=== PATIENT | male | born 1950 | race Caucasian/White ===

== ENCOUNTER 2021-02-17 12:17 | Observation (INO) | payer MEDICARE ==
[2021-02-17] MEDS ORDERED: solu-MEDROL 125 MG, Sterile H2O 10 ml 2 ML IV ONE ×2 (12:31)
[2021-02-17] MEDS ORDERED: DUONEB 0.5-3 MG/3 ml Neb IH ONE ×2 (12:31→12:40)
[2021-02-17] MEDS ORDERED: Zosyn 3.375 GM Vial 3.375 GM in Sodium Chloride 100ML MINI-BAG PLUS 100 ML IV ONE (12:33)
[2021-02-17] MEDS ORDERED: VANCOMYCIN 1 GRAM/200 ML BAG 1 GM/200 ML PIGGYBACK IV ONE ×2 (12:34→12:55)
--- NOTE | 2021-02-17 12:37 | ERPHSYRPT ---
- History of Present Illness Time Seen by Provider: 02/17/21 12:30 Source: patient Exam Limitations: no limitations Physician History: Patient is a 70-year-old male presents to our ED for evaluation of progressive shortness of breath. Patient states he was at his primary care doctor's office 5 days ago. Patient states he was tested for Covid and resulted as negative. Patient states he was diagnosed with pneumonia and started on Levaquin. Patient has been taken his Levaquin antibiotics as prescribed. Despite of his antibiotics patient continues to feel short of breath. Patient states he awoke this morning with short of breath. Patient states he is having a hard time breathing. Patient presented to our ED for evaluation of the shortness of breath and cough. On exam patient was observed to have 4+ pitting edema. Patient denies associated shortness of breath. Patient has history of A. fib. He is currently on Eliquis. No nausea vomiting or diaphoresis. No diarrhea. No rash. Patient voices no other complaints or concerns at this time. Timing/Duration: day(s) (5 days ago) Activities at Onset: none Severity of Dyspnea-Max: moderate Severity of Dyspnea-Current: mild Possible Cause: no prior episodes Modifying Factors: Improves With: activity (Exertion worsens shortness of breath. Patient has not self treated with beta agonist.) Associated Symptoms: constant, cough, edema, wheezing, ankle swelling, productive cough, No chest pain/discomfort, No fever, No loss of appetite, No lightheadedness, No calf pain (Negative Homans' sign bilaterally.), No dizziness, No heart racing, No painful breathing, No tightness, No tingling face Allergies/Adverse Reactions: cephalexin [From Keflex] Allergy (Severe, Verified 02/17/21 12:40) hives breathing insulin glargine [From Lantus U-100 Insulin] Allergy (Severe, Verified 02/17/21 12:40) respiratory Jnladsm-ARY-OnE Reductase Inhibitor Allergy (Verified 02/17/21 13:02) methyltrexate Allergy (Uncoded 02/17/21 13:02) Home Medications: Amiodarone HCl [Pacerone] 200 mg PO DAILY 02/17/21 [History] Apixaban [Eliquis] 5 mg PO DAILY 02/17/21 [History] Carvedilol [Coreg] 25 mg PO DAILY 02/17/21 [History] Dapagliflozin Propanediol [Farxiga] 10 mg PO 02/17/21 [History] Evolocumab [Repatha Syringe] 140 mg SQ DAILY 02/17/21 [History] Furosemide [Lasix] 20 mg PO DAILY 02/17/21 [History] Leflunomide 20 mg PO DAILY 02/17/21 [History] Levofloxacin [Levofloxacin 250MG Tablet] 250 mg PO DAILY 02/17/21 [History] Omeprazole 40 mg PO DAILY 02/17/21 [History] Pentoxifylline 400 mg [Trental 400 MG] 400 mg PO DAILY 02/17/21 [History] Sildenafil Citrate [Viagra] 100 mg PO DAILY 02/17/21 [History] Sitagliptin Phos/Metformin HCl [Janumet 50-1,000 mg Tablet] 1 each PO DAILY 02/17/21 [History] Telmisartan/Hydrochlorothiazid [Micardis Hct 80-25 mg Tablet] 1 each PO DAILY 02/17/21 [History] Tramadol HCl 50 mg [Ultram 50 mg] 50 mg PO DAILY 02/17/21 [History] predniSONE [Prednisone] 20 mg PO DAILY 02/17/21 [History] - Review of Systems Constitutional: No Symptoms, No Fever, No Chills Eyes: No Symptoms Ears, Nose, & Throat: No Symptoms Respiratory: No Symptoms, No Cough, No Dyspnea Cardiac: No Symptoms, No Chest Pain, No Edema, No Syncope Abdominal/Gastrointestinal: No Symptoms, No Abdominal Pain, No Nausea, No Vomiting, No Diarrhea Genitourinary Symptoms: No Symptoms, No Dysuria Musculoskeletal: No Symptoms, No Back Pain, No Neck Pain Skin: No Symptoms, No Rash Neurological: No Symptoms, No Dizziness, No Focal Weakness, No Sensory Changes Psychological: No Symptoms Endocrine: No Symptoms Hematologic/Lymphatic: No Symptoms Immunological/Allergic: No Symptoms All Other Systems: Reviewed and Negative - Nursing Vital Signs Nursing Vital Signs: Initial Vital Signs Temperature 98.3 F 02/17/21 12:26 Pulse Rate 112 H 02/17/21 12:26 Respiratory Rate 24 02/17/21 12:26 Blood Pressure 152/99 02/17/21 12:26 O2 Sat by Pulse Oximetry 92 L 02/17/21 12:26 Pain Scale Pain Intensity 0 - Physical Exam General Appearance: mild distress, alert Eye Exam: PERRL/EOMI Ears, Nose, Throat Exam: hearing grossly normal, normal ENT inspection, normal pharynx Neck Exam: normal inspection, supple, full range of motion, No non-tender Respiratory Exam: respiratory distress, rhonchi, wheezing Cardiovascular/Chest Exam: normal heart sounds, regular rate/rhythm, normal peripheral pulses Abdominal/Gastrointestinal Exam: soft, No tenderness, No distention, No mass Extremity Exam: non-tender, normal range of motion, normal inspection, no calf tenderness, no pedal edema, pedal edema, swelling Peripheral Pulses Exam: dorsalis-pedis (R): 2+, dorsalis-pedis (L): 2+ Neurologic Exam: alert, oriented x 3, cooperative, 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 Heart not enlarged for AP portable technique. 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 STAT Care 02/17/21 12:31 Active EKG-ER Only STAT Care 02/17/21 12:31 Active IV Insertion STAT Care 02/17/21 12:31 Active Pulse Oximetry (ED) STAT Care 02/17/21 12:31 Active CHEST 1 VIEW (PORTABLE) Stat Exams 02/17/21 12:31 Completed BLOOD CULTURE Stat Lab 02/17/21 12:50 Received CBC W DIFF Stat Lab 02/17/21 12:45 Completed CMP Stat Lab 02/17/21 12:45 Completed NT PRO BNP Stat Lab 02/17/21 12:45 Completed TROPONIN Q3H Lab 02/17/21 12:45 Completed TROPONIN Q3H Lab 02/17/21 15:45 Ordered TROPONIN Q3H Lab 02/17/21 18:45 Ordered TROPONIN Q3H Lab 02/17/21 21:45 Ordered TROPONIN Q3H Lab 02/18/21 00:45 Ordered Respiratory Therapy Assessment DAILY RT 02/17/21 13:00 Active Transfer Order Routine Transfer 02/17/21 Ordered Medication Summary Generic Name Dose Route Start Last Admin Trade Name Palomo PRN Reason Stop Dose Admin Doxycycline Hyclate 100 mg/ 100 mls @ 100 mls/hr 02/17/21 22:00 02/17/21 13:12 Dextrose IV 03/19/21 21:59 100 mls/hr Q12HT DAVID Administration Potassium Chloride 20 meq in 100 mls @ 50 mls/hr 02/17/21 14:00 02/17/21 14:28 Potassium Chloride 20 Meq In Water 100ml IV 02/17/21 17:59 50 mls/hr Q2H DAVID Administration Discontinued Medications Generic Name Dose Route Start Last Admin Trade Name Palomo PRN Reason Stop Dose Admin Albuterol/Ipratropium 3 ml 02/17/21 12:31 02/17/21 12:44 Ipratropium/Albuterol Sulfate 3 Ml Ampul.Neb IH 02/17/21 12:32 3 ml STAT ONE Administration Albuterol/Ipratropium Confirm 02/17/21 12:40 Ipratropium/Albuterol Sulfate 3 Ml Ampul.Neb Administered 02/17/21 12:41 Dose 3 ml IH .STK-MED ONE Aspirin 324 mg 02/17/21 13:58 02/17/21 14:27 Aspirin 81 Mg Tab.Chew PO 02/17/21 13:59 324 mg STAT ONE Administration Aspirin Confirm 02/17/21 14:27 Aspirin 81 Mg Tab.Chew Administered 02/17/21 14:28 Dose 324 mg .ROUTE .STK-MED ONE Methylprednisolone Sodium 0 mg 02/17/21 12:31 02/17/21 13:08 Succinate 125 mg/ Sterile IV 02/17/21 12:32 125 mg Water 2 ml STAT ONE Administration Doxycycline Hyclate Confirm 02/17/21 13:12 Doxycycline Hyclate 100 Mg/Vial Injection Administered 02/17/21 13:13 Dose 100 mg IV .STK-MED ONE Furosemide 40 mg 02/17/21 13:58 02/17/21 14:28 Furosemide 40 Mg/4 Ml Vial IV 02/17/21 13:59 40 mg STAT ONE Administration Furosemide Confirm 02/17/21 14:27 Furosemide 40 Mg/4 Ml Vial Administered 02/17/21 14:28 Dose 40 mg .ROUTE .STK-MED ONE Piperacillin Sod/Tazobactam 100 mls @ 200 mls/hr 02/17/21 12:33 02/17/21 13:09 Sod 3.375 gm/ Sodium Chloride IV 02/17/21 13:02 Not Given STAT ONE Vancomycin HCl 1 gm in 200 mls @ 125 mls/hr 02/17/21 12:34 02/17/21 14:50 Vancomycin 1 Gram/200 Ml Bag IV 02/17/21 14:09 Infused STAT ONE Infusion Sodium Chloride Confirm 02/17/21 12:55 Sodium Chloride 100ml Mini-Bag Plus Administered 02/17/21 12:56 Dose 100 mls @ ud IV .STK-MED ONE Vancomycin HCl Confirm 02/17/21 12:55 Vancomycin 1 Gram/200 Ml Bag Administered 02/17/21 12:56 Dose 1 gm in 200 mls @ ud IV .STK-MED ONE Dextrose Confirm 02/17/21 13:12 D5w 100ml Mini Bag 100 Ml Administered 02/17/21 13:13 Dose 100 mls @ ud IV .STK-MED ONE Methylprednisolone Sodium Succinate Confirm 02/17/21 12:55 Methylprednis Sod Succ 125 Mg/2 Ml Vial Administered 02/17/21 12:56 Dose 125 mg .ROUTE .STK-MED ONE Nitroglycerin 1 gm 02/17/21 14:03 02/17/21 14:28 Nitroglycerin 1 Gm Packet TOP 02/17/21 14:04 1 gm STAT ONE Administration Nitroglycerin Confirm 02/17/21 14:27 Nitroglycerin 1 Gm Packet Administered 02/17/21 14:28 Dose 1 gm .ROUTE .STK-MED ONE Piperacillin Sod/Tazobactam Sod Confirm 02/17/21 12:55 Piperacillin/Tazobactam Sodium 3.375 Gm Vial Administered 02/17/21 12:56 Dose 3.375 gm IV .STK-MED ONE Sterile Water Confirm 02/17/21 12:55 Water For Injection,Sterile 10 Ml Vial Administered 02/17/21 12:56 Dose 10 ml IJ .STK-MED ONE Lab/Rad Data: Laboratory Result Diagrams 02/17/21 12:45 02/17/21 12:45 Laboratory Results 02/17/21 02/17/21 02/17/21 Range/Units 12:56 12:45 12:45 WBC (4.0-10.5) K/mm3 RBC (4.1-5.6) M/mm3 Hgb (12.5-18.0) gm/dl Hct (42-50) % MCV (78-100) fl MCH (26-32) pg MCHC (32-36) g/dl RDW (11.5-14.0) % Plt Count (150-450) K/mm3 MPV (7.5-11.0) fl Gran % (36.0-66.0) % Eos # (Auto) (0-0.5) Absolute Lymphs (auto) (1.0-4.6) Absolute Monos (auto) (0.0-1.3) Lymphocytes % (24.0-44.0) % Monocytes % (0.0-12.0) % Eosinophils % (0.00-5.0) % Basophils % (0.0-0.4) % Absolute Granulocytes (1.4-6.9) Basophils # (0-0.4) Sodium 130 L (137-145) mmol/L Potassium 3.2 L (3.5-5.1) mmol/L Chloride 92 L (98-107) mmol/L Carbon Dioxide 26 (22-30) mmol/L Anion Gap 15.4 H (5-15) MEQ/L BUN 19 (9-20) mg/dL Creatinine 1.23 (0.66-1.25) mg/dL Estimated GFR > 60.0 ML/MIN Glucose 170 H (74-106) mg/dL Calcium 8.9 (8.4-10.2) mg/dL Total Bilirubin 1.00 (0.2-1.3) mg/dL AST 30 (17-59) U/L ALT 35 (0-50) U/L Alkaline Phosphatase 150 H (38-126) U/L Troponin I 0.068 H* (0.000-0.034) ng/mL NT-Pro-B Natriuret Pep 79589 H (0-900) pg/mL Serum Total Protein 7.3 (6.3-8.2) g/dL Albumin 4.0 (3.5-5.0) g/dL Influenza Type A Ag NEGATIVE (NEGATIVE) Influenza Type B Ag NEGATIVE (NEGATIVE) RSV (PCR) NEGATIVE (Negative) SARS-CoV-2 (PCR) NEGATIVE (NEGATIVE) Slides for Path Review 02/17/21 Range/Units 12:45 WBC 6.3 (4.0-10.5) K/mm3 RBC 4.27 (4.1-5.6) M/mm3 Hgb 9.6 L (12.5-18.0) gm/dl Hct 33.3 L (42-50) % MCV 78.0 (78-100) fl MCH 22.5 L (26-32) pg MCHC 28.8 L (32-36) g/dl RDW 21.8 H (11.5-14.0) % Plt Count 254 (150-450) K/mm3 MPV 9.7 (7.5-11.0) fl Gran % 76.3 H (36.0-66.0) % Eos # (Auto) 0.16 (0-0.5) Absolute Lymphs (auto) 0.60 L (1.0-4.6) Absolute Monos (auto) 0.70 (0.0-1.3) Lymphocytes % 9.6 L (24.0-44.0) % Monocytes % 11.2 (0.0-12.0) % Eosinophils % 2.6 (0.00-5.0) % Basophils % 0.3 (0.0-0.4) % Absolute Granulocytes 4.78 (1.4-6.9) Basophils # 0.02 (0-0.4) Sodium (137-145) mmol/L Potassium (3.5-5.1) mmol/L Chloride (98-107) mmol/L Carbon Dioxide (22-30) mmol/L Anion Gap (5-15) MEQ/L BUN (9-20) mg/dL Creatinine (0.66-1.25) mg/dL Estimated GFR ML/MIN Glucose (74-106) mg/dL Calcium (8.4-10.2) mg/dL Total Bilirubin (0.2-1.3) mg/dL AST (17-59) U/L ALT (0-50) U/L Alkaline Phosphatase (38-126) U/L Troponin I (0.000-0.034) ng/mL NT-Pro-B Natriuret Pep (0-900) pg/mL Serum Total Protein (6.3-8.2) g/dL Albumin (3.5-5.0) g/dL Influenza Type A Ag (NEGATIVE) Influenza Type B Ag (NEGATIVE) RSV (PCR) (Negative) SARS-CoV-2 (PCR) (NEGATIVE) Slides for Path Review YES - Progress Progress: improved Air Movement: good Progress Note: Patient reassessed. He is breathing much easier at this point. Patient states he feels better. Work-up reveals hyponatremia. Hypokalemia observed. Patient received potassium replacement. BNP is 10,800. Given the physical exam it is likely patient is experiencing congestive heart failure. Troponin elevated at 0.068. Patient received 40 mg of Lasix and Nitropaste and aspirin. Patient was also mildly anemic. Chest x-ray reveals bilateral pneumonia which appears similar to Covid pneumonia. Patient states he recently tested negative for Co vid. We are awaiting a repeat Covid exam at this time. 02/17/21 14:06 Patient is Covid RSV and influenza negative. 02/17/21 14:08 Patient is in A. fib. He has A. fib chronically. Patient on Eliquis. Case discussed with who advised transfer to [facility]. 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 Plan of care discussed with patient. He agrees to transfer to [facility] for further evaluation and treatment. 02/17/21 14:[address] Zapien hospitalist at [facility] who accepts transfer. Patient is currently on the wait list. 02/17/21 14:33 Blood Culture(s) Obtained: Yes Antibiotics given: Yes Discussed with : Jordy Counseled pt/family regarding: lab results, diagnosis, need for follow-up, rad results - Departure Departure Disposition: Transfer Clinical Impression: Hyponatremia, Hypokalemia, Elevated troponin, Elevated brain natriuretic peptide (BNP) level, Congestive heart failure, Anemia, Pneumonia, Atrial fibrillation, Hypoxia Condition: Stable Critical Care Time: No Referrals: GEETA MENEZES MD [Primary Care Provider] - Follow up/PCP as directed Instructions: Heart Failure
--- NOTE | 2021-02-17 12:54 | XRAY ---
Indication: Short of breath. Comparison: None Portable chest demonstrate mild bibasilar interstitial alveolar opacities without consolidation/large effusion. Heart not enlarged for AP portable technique. Bony thorax intact.
[2021-02-17] MEDS ORDERED: Sodium Chloride 100ML MINI-BAG PLUS 0 ML IV ONE (12:55)
[2021-02-17] MEDS ORDERED: Sterile H2O 10 ml IJ ONE (12:55)
[2021-02-17] MEDS ORDERED: solu-MEDROL ONE (12:55)
[2021-02-17] MEDS ORDERED: Zosyn 3.375 GM Vial IV ONE (12:55)
[2021-02-17 12:56] LABS: Absolute Neutrophil Ct (ANC) 4.78 (1.4-6.9); BASOPHIL % 0.3 % (0.0-0.4); Basophil (Absolute #) 0.02 (0-0.4); Eosinophil % 2.6 % (0.00-5.0); Eosinophil (Absolute #) 0.16 (0-0.5); Hematocrit 33.3 % (42-50); Hemoglobin 9.6 gm/dl (12.5-18.0); Lymphocytes % 9.6 % (24.0-44.0); Mean Corpuscular Hemoglobin 22.5 pg (26-32); Mean Corpuscular Hgb Concent. 28.8 g/dl (32-36); Mean Platelet Volume 9.7 fl (7.5-11.0); Monocytes % 11.2 % (0.0-12.0); Neutrophil % 76.3 % (36.0-66.0); Platelet Count 254 K/mm3 (150-450); Red Blood Count 4.27 M/mm3 (4.1-5.6); Red Cell Distribution Width 21.8 % (11.5-14.0); White Blood Count 6.3 K/mm3 (4.0-10.5)
[2021-02-17] MEDS ORDERED: VIBRAMYCIN 100 MG IV ONE ×2 (13:12→22:12)
[2021-02-17] MEDS ORDERED: D5w 100ML Mini Bag 100 ML 100 ML IV ONE ×2 (13:12→22:12)
[2021-02-17 13:19] LABS: ALKALINE PHOSPHATASE 150 U/L (38-126); ANION GAP 15.4 MEQ/L (5-15); BLOOD UREA NITROGEN 19 mg/dL (9-20); CHLORIDE 92 mmol/L (98-107); Calcium 8.9 mg/dL (8.4-10.2); Carbon Dioxide 26 mmol/L (22-30); Creatinine 1 1.23 mg/dL (0.66-1.25); EST GLOMERULAR FILTRATION RATE > 60.0 ML/MIN; Glucose 170 mg/dL (74-106); NT PRO BNP 10800 pg/mL (0-900); Potassium 3.2 mmol/L (3.5-5.1); SGOT/AST 30 U/L (17-59); SGPT/ALT 35 U/L (0-50); SODIUM 130 mmol/L (137-145); Total Protein 7.3 g/dL (6.3-8.2)
[2021-02-17 13:36] LABS: INFLUENZA A NEGATIVE (NEGATIVE); INFLUENZA B NEGATIVE (NEGATIVE); RESPIRATORY SYNCTIAL VIRUS NEGATIVE (Negative); SARS-CoV-2 Xpert Express NEGATIVE (NEGATIVE)
[2021-02-17] MEDS ORDERED: Lasix 40 MG/4 ML IV ONE (13:58)
[2021-02-17] MEDS ORDERED: BABY ASPIRIN 81 MG CHEW PO ONE (13:58)
[2021-02-17] MEDS ORDERED: NITRO-BID 2% UD PACKETS TOP ONE (14:03)
[2021-02-17] MEDS ORDERED: POTASSIUM CHLORIDE 20 mEq IN WATER 100ML 100 ML IV ONE ×2 (14:27→17:57)
[2021-02-17] MEDS ORDERED: NITRO-BID 2% UD PACKETS ONE (14:27)
[2021-02-17] MEDS ORDERED: BABY ASPIRIN 81 MG CHEW ONE (14:27)
[2021-02-17] MEDS ORDERED: Lasix 40 MG/4 ML ONE (14:27)
[2021-02-17] MEDS: POTASSIUM CHLORIDE 20 mEq IN WATER 100ML 20 MEQ/100 ML BAG IV SCH ×2 (14:28→17:59)
[2021-02-17 15:12] LABS: Slide Review 1 YES
[2021-02-17] MEDS: solu-MEDROL 60 MG, Sterile H2O 10 ml 2 ML IV SCH ×4 (17:59→23:00)
[2021-02-17] MEDS ORDERED: ULTRAM 50 MG PO PRN (18:30)
[2021-02-17] MEDS: DUONEB 0.5-3 MG/3 ml Neb IH SCH ×2 (19:05→22:41)
[2021-02-17] MEDS: ELIQUIS 2.5 MG TABLET PO SCH (21:20)
[2021-02-17] MEDS: COREG 12.5 MG PO SCH (21:20)
[2021-02-17] MEDS: Protonix 40MG Tablet PO SCH (21:21)
[2021-02-17] MEDS: ECOTRIN 81 MG PO SCH (21:23)
[2021-02-17] MEDS ORDERED: Januvia 50 MG PO SCH (22:00)
[2021-02-17] MEDS ORDERED: Pepcid 20 MG PO SCH (22:00)
[2021-02-17] MEDS ORDERED: VIBRAMYCIN 100 MG*** 100 MG in Dextrose 5%/Water IV Soln. 100ML PLUS BAG 100 ML IV SCH (22:00)
[2021-02-17] MEDS: VIBRAMYCIN 100 MG*** 100 MG in Dextrose 5%/Water IV Soln. 100ML PLUS BAG 100 ML IV SCH (23:00)
[2021-02-18 02:45] LABS: ANION GAP 13.8 MEQ/L (5-15); Calcium 8.4 mg/dL (8.4-10.2); Creatinine 1 1.37 mg/dL (0.66-1.25); EST GLOMERULAR FILTRATION RATE 54.6 ML/MIN; Potassium 3.6 mmol/L (3.5-5.1)
[2021-02-18 02:46] LABS: Hemoglobin 8.3 gm/dl (12.5-18.0); Mean Cell Volume 77.7 fl (78-100); Mean Corpuscular Hemoglobin 22.3 pg (26-32); Mean Corpuscular Hgb Concent. 28.6 g/dl (32-36); Mean Platelet Volume 8.9 fl (7.5-11.0); Platelet Count 196 K/mm3 (150-450); Red Blood Count 3.73 M/mm3 (4.1-5.6); Red Cell Distribution Width 21.7 % (11.5-14.0); White Blood Count 2.6 K/mm3 (4.0-10.5)
[2021-02-18] MEDS: DUONEB 0.5-3 MG/3 ml Neb IH SCH ×5 (02:57→18:09)
[2021-02-18 03:52] LABS: Slide Review YES
[2021-02-18] MEDS ORDERED: D50W 50 ml Abboject IV ONE (04:15)
[2021-02-18] MEDS: solu-MEDROL 60 MG, Sterile H2O 10 ml 2 ML IV SCH ×6 (06:16→17:24)
[2021-02-18] MEDS: Glucophage 500 MG PO SCH ×2 (07:55→17:24)
--- NOTE | 2021-02-18 08:25 | PCM.HP ---
History of Present Illness - Chief Complaint Chief Complaint: chf, pneumonia History of Present Illness: is a 70 year old malecame to ER with 1 week Hx of fever, cough, chills, shortness of breath - Review of Systems Constitutional: Fever, Chills Eyes: No Symptoms Ears, Nose, & Throat: No Symptoms Respiratory: Cough, Orthopnea, Short Of Breath, Wheezing Cardiac: No Chest Pain, No Edema, No Syncope Abdominal/Gastrointestinal: No Abdominal Pain, No Nausea, No Vomiting, No Diarrhea Genitourinary Symptoms: No Dysuria Musculoskeletal: No Back Pain, No Neck Pain Skin: No Rash Neurological: No Dizziness, No Focal Weakness, No Sensory Changes Psychological: No Symptoms Endocrine: No Symptoms Hematologic/Lymphatic: No Symptoms Immunological/Allergic: No Symptoms Medications & Allergies Home Medications: Home Medication List Apixaban [Eliquis] 5 mg PO DAILY 02/17/21 [History Confirmed 02/17/21] Aspirin EC 81 mg [Ecotrin 81 mg] 81 mg PO DAILY 02/17/21 [History Confirmed 02/17/21] Carvedilol [Coreg] 25 mg PO BID 02/17/21 [History Confirmed 02/17/21] Dapagliflozin Propanediol [Farxiga] 10 mg PO DAILY 02/17/21 [History Confirmed 02/17/21] Evolocumab [Repatha Syringe] 140 mg SQ UD 02/17/21 [History Confirmed 02/17/21] Famotidine [Pepcid] 40 mg PO HS 02/17/21 [History Confirmed 02/17/21] Famotidine [Pepcid] 40 mg PO HS 02/17/21 [History Confirmed 02/17/21] Fiber [Fiber Diet] 6 each PO HS 02/17/21 [History Confirmed 02/17/21] Furosemide [Lasix] 20 mg PO DAILY 02/17/21 [History Confirmed 02/17/21] Leflunomide 20 mg PO DAILY 02/17/21 [History Confirmed 02/17/21] Linaclotide [Linzess] 290 mcg PO DAILY PRN PRN 02/17/21 [History Confirmed 02/17/21] Omeprazole 40 mg PO BID 02/17/21 [History Confirmed 02/17/21] Potassium Chloride 8 meq PO DAILY 02/17/21 [History Confirmed 02/17/21] Sildenafil Citrate [Viagra] 100 mg PO DAILY PRN 02/17/21 [History Confirmed 02/01 10/21] Sitagliptin Phos/Metformin HCl [Janumet 50-1,000 mg Tablet] 1 each PO BID 02/17/21 [History Confirmed 02/17/21] Telmisartan/Hydrochlorothiazid [Micardis Hct 80-25 mg Tablet] 1 each PO DAILY 02/17/21 [History Confirmed 02/17/21] Tramadol HCl 50 mg [Ultram 50 mg] 50 mg PO Q4H PRN PRN 02/17/21 [History Confirmed 02/17/21] predniSONE [Prednisone] 20 mg PO DAILY 02/17/21 [History Confirmed 02/17/21] Allergies/Adverse Reactions: Allergies Allergy/AdvReac Type Severity Reaction Status Date / Time cephalexin [From Keflex] Allergy Severe hives Verified 02/17/21 18:15 breathing insulin glargine Allergy Severe respiratory Verified 02/17/21 18:15 [From Lantus U-100 Insulin] [id number] Reductase Allergy Verified 02/17/21 18:15 Inhibitor methyltrexate Allergy Uncoded 02/17/21 13:02 - Past Medical History Past Medical History: Yes Neurological History: No Pertinent History ENT History: Cataracts Cardiac History: Arrhythmia, High Cholesterol, Hypertension Respiratory History: No Pertinent History Endocrine Medical History: Diabetes Type II Musculoskelatal History: Arthritis, Rheumatoid Arthritis GI Medical History: Diverticulitis, Diverticulosis, GERD, Gallbladder Disease History: No Pertinent History Pyscho-Social History: No Pertinent History Male Reproductive Disorders: Other Comment: erectile dysfunction - Past Surgical History Past Surgical History: Yes Neuro Surgical History: No Pertinent History Cardiac History: Cardiac Catheterization, Cardiac Stent Respiratory Surgery: No Pertinent History GI Surgical History: Cholecystectomy Genitourinary Surgical Hx: No Pertinent History Musculskeletal Surgical Hx: Joint Replacement, Orthopedic Surgery Male Surgical History: Vasectomy Other Surgical History: chidi. vasectomy. heart cath 6 stents. left hand joint replacement - Social History Smoking Status: Former smoker Exposure to second hand smoke: No Alcohol: None Drug Use: none - Physical Exam Vital Signs: Vital Signs - 24 hr Temp Pulse Resp BP Pulse Ox 02/18/21 07:31 84 18 95 02/18/21 04:00 97.7 F 88 18 166/91 98 02/18/21 03:00 87 22 94 L 02/18/21 00:00 97.1 F 97 H 20 153/92 97 02/17/21 22:42 89 19 93 L 02/17/21 20:00 97.1 F 109 H 20 142/83 96 02/17/21 19:05 96 H 20 94 L 02/17/21 16:07 97.1 F 105 H 20 143/92 95 02/17/21 15:41 92 L 02/17/21 15:02 98.3 F 103 H 22 157/97 98 02/17/21 14:05 98.3 F 94 H 22 151/106 96 02/17/21 13:23 103 H 21 143/108 97 02/17/21 12:50 91 L 02/17/21 12:44 106 H 20 99 02/17/21 12:26 98.3 F 112 H 22 152/99 92 L General Appearance: no apparent distress, alert Neurologic Exam: alert, oriented x 3, cooperative, normal mood/affect, nml cerebellar function, nml station & gait, sensation nml, No motor deficits Eye Exam: PERRL/EOMI, eyes nml inspection Ears, Nose, Throat Exam: normal ENT inspection, TMs normal, pharynx normal, moist mucous membranes Neck Exam: normal inspection, non-tender, supple, full range of motion Respiratory Exam: diminished breath sounds, crackles/rales, rhonchi, wheezing, No respiratory distress Cardiovascular Exam: regular rate/rhythm, normal heart sounds, normal peripheral pulses Gastrointestinal/Abdomen Exam: soft, normal bowel sounds, No tenderness, No mass Back Exam: normal inspection, normal range of motion, No CVA tenderness, No vertebral tenderness Extremity Exam: normal inspection, normal range of motion, pelvis stable Skin Exam: normal color, warm, dry, No rash Lymphatic Exam: No adenopathy Results - Labs Lab/Micro Results: Lab Results-Last 24 Hours 02/17/21 02/17/21 02/17/21 Range/Units 12:45 12:45 12:45 WBC 6.3 (4.0-10.5) K/mm3 RBC 4.27 (4.1-5.6) M/mm3 Hgb 9.6 L (12.5-18.0) gm/dl Hct 33.3 L (42-50) % MCV 78.0 (78-100) fl MCH 22.5 L (26-32) pg MCHC 28.8 L (32-36) g/dl RDW 21.8 H (11.5-14.0) % Plt Count 254 (150-450) K/mm3 MPV 9.7 (7.5-11.0) fl Gran % 76.3 H (36.0-66.0) % Eos # (Auto) 0.16 (0-0.5) Absolute Lymphs (auto) 0.60 L (1.0-4.6) Absolute Monos (auto) 0.70 (0.0-1.3) Lymphocytes % 9.6 L (24.0-44.0) % Monocytes % 11.2 (0.0-12.0) % Eosinophils % 2.6 (0.00-5.0) % Basophils % 0.3 (0.0-0.4) % Absolute Granulocytes 4.78 (1.4-6.9) Basophils # 0.02 (0-0.4) Sodium 130 L (137-145) mmol/L Potassium 3.2 L (3.5-5.1) mmol/L Chloride 92 L (98-107) mmol/L Carbon Dioxide 26 (22-30) mmol/L Anion Gap 15.4 H (5-15) MEQ/L BUN 19 (9-20) mg/dL Creatinine 1.23 (0.66-1.25) mg/dL Estimated GFR > 60.0 ML/MIN Glucose 170 H (74-106) mg/dL POC Glucometer (74 to 106) mg/dL Hemoglobin A1c (4.5-6.0) % Calcium 8.9 (8.4-10.2) mg/dL Total Bilirubin 1.00 (0.2-1.3) mg/dL AST 30 (17-59) U/L ALT 35 (0-50) U/L Alkaline Phosphatase 150 H (38-126) U/L Troponin I 0.068 H* (0.000-0.034) ng/mL NT-Pro-B Natriuret Pep 52524 H (0-900) pg/mL Serum Total Protein 7.3 (6.3-8.2) g/dL Albumin 4.0 (3.5-5.0) g/dL Influenza Type A Ag (NEGATIVE) Influenza Type B Ag (NEGATIVE) RSV (PCR) (Negative) SARS-CoV-2 (PCR) (NEGATIVE) Slides for Path Review YES 02/17/21 02/17/21 02/17/21 Range/Units 12:56 15:44 17:05 WBC (4.0-10.5) K/mm3 RBC (4.1-5.6) M/mm3 Hgb (12.5-18.0) gm/dl Hct (42-50) % MCV (78-100) fl MCH (26-32) pg MCHC (32-36) g/dl RDW (11.5-14.0) % Plt Count (150-450) K/mm3 MPV (7.5-11.0) fl Gran % (36.0-66.0) % Eos # (Auto) (0-0.5) Absolute Lymphs (auto) (1.0-4.6) Absolute Monos (auto) (0.0-1.3) Lymphocytes % (24.0-44.0) % Monocytes % (0.0-12.0) % Eosinophils % (0.00-5.0) % Basophils % (0.0-0.4) % Absolute Granulocytes (1.4-6.9) Basophils # (0-0.4) Sodium (137-145) mmol/L Potassium (3.5-5.1) mmol/L Chloride (98-107) mmol/L Carbon Dioxide (22-30) mmol/L Anion Gap (5-15) MEQ/L BUN (9-20) mg/dL Creatinine (0.66-1.25) mg/dL Estimated GFR ML/MIN Glucose (74-106) mg/dL POC Glucometer (74 to 106) mg/dL Hemoglobin A1c 7.70 H (4.5-6.0) % Calcium (8.4-10.2) mg/dL Total Bilirubin (0.2-1.3) mg/dL AST (17-59) U/L ALT (0-50) U/L Alkaline Phosphatase (38-126) U/L Troponin I 0.055 H* (0.000-0.034) ng/mL NT-Pro-B Natriuret Pep (0-900) pg/mL Serum Total Protein (6.3-8.2) g/dL Albumin (3.5-5.0) g/dL Influenza Type A Ag NEGATIVE (NEGATIVE) Influenza Type B Ag NEGATIVE (NEGATIVE) RSV (PCR) NEGATIVE (Negative) SARS-CoV-2 (PCR) NEGATIVE (NEGATIVE) Slides for Path Review 02/17/21 02/17/21 02/17/21 Range/Units 19:03 21:03 22:26 WBC (4.0-10.5) K/mm3 RBC (4.1-5.6) M/mm3 Hgb (12.5-18.0) gm/dl Hct (42-50) % MCV (78-100) fl MCH (26-32) pg MCHC (32-36) g/dl RDW (11.5-14.0) % Plt Count (150-450) K/mm3 MPV (7.5-11.0) fl Gran % (36.0-66.0) % Eos # (Auto) (0-0.5) Absolute Lymphs (auto) (1.0-4.6) Absolute Monos (auto) (0.0-1.3) Lymphocytes % (24.0-44.0) % Monocytes % (0.0-12.0) % Eosinophils % (0.00-5.0) % Basophils % (0.0-0.4) % Absolute Granulocytes (1.4-6.9) Basophils # (0-0.4) Sodium (137-145) mmol/L Potassium (3.5-5.1) mmol/L Chloride (98-107) mmol/L Carbon Dioxide (22-30) mmol/L Anion Gap (5-15) MEQ/L BUN (9-20) mg/dL Creatinine (0.66-1.25) mg/dL Estimated GFR ML/MIN Glucose (74-106) mg/dL POC Glucometer 278 H (74 to 106) mg/dL Hemoglobin A1c (4.5-6.0) % Calcium (8.4-10.2) mg/dL Total Bilirubin (0.2-1.3) mg/dL AST (17-59) U/L ALT (0-50) U/L Alkaline Phosphatase (38-126) U/L Troponin I 0.052 H* 0.045 H* (0.000-0.034) ng/mL NT-Pro-B Natriuret Pep (0-900) pg/mL Serum Total Protein (6.3-8.2) g/dL Albumin (3.5-5.0) g/dL Influenza Type A Ag (NEGATIVE) Influenza Type B Ag (NEGATIVE) RSV (PCR) (Negative) SARS-CoV-2 (PCR) (NEGATIVE) Slides for Path Review 02/18/21 02/18/21 02/18/21 Range/Units 01:53 01:53 01:53 WBC 2.6 L (4.0-10.5) K/mm3 RBC 3.73 L (4.1-5.6) M/mm3 Hgb 8.3 L (12.5-18.0) gm/dl Hct 29.0 L (42-50) % MCV 77.7 L (78-100) fl MCH 22.3 L (26-32) pg MCHC 28.6 L (32-36) g/dl RDW 21.7 H (11.5-14.0) % Plt Count 196 (150-450) K/mm3 MPV 8.9 (7.5-11.0) fl Gran % (36.0-66.0) % Eos # (Auto) (0-0.5) Absolute Lymphs (auto) (1.0-4.6) Absolute Monos (auto) (0.0-1.3) Lymphocytes % (24.0-44.0) % Monocytes % (0.0-12.0) % Eosinophils % (0.00-5.0) % Basophils % (0.0-0.4) % Absolute Granulocytes (1.4-6.9) Basophils # (0-0.4) Sodium 132 L (137-145) mmol/L Potassium 3.6 (3.5-5.1) mmol/L Chloride 95 L (98-107) mmol/L Carbon Dioxide 26 (22-30) mmol/L Anion Gap 13.8 (5-15) MEQ/L BUN 22 H (9-20) mg/dL Creatinine 1.37 H (0.66-1.25) mg/dL Estimated GFR 54.6 ML/MIN Glucose 199 H (74-106) mg/dL POC Glucometer (74 to 106) mg/dL Hemoglobin A1c (4.5-6.0) % Calcium 8.4 (8.4-10.2) mg/dL Total Bilirubin (0.2-1.3) mg/dL AST (17-59) U/L ALT (0-50) U/L Alkaline Phosphatase (38-126) U/L Troponin I 0.047 H* (0.000-0.034) ng/mL NT-Pro-B Natriuret Pep 52710 H (0-900) pg/mL Serum Total Protein (6.3-8.2) g/dL Albumin (3.5-5.0) g/dL Influenza Type A Ag (NEGATIVE) Influenza Type B Ag (NEGATIVE) RSV (PCR) (Negative) SARS-CoV-2 (PCR) (NEGATIVE) Slides for Path Review YES 02/18/21 Range/Units 07:05 WBC (4.0-10.5) K/mm3 RBC (4.1-5.6) M/mm3 Hgb (12.5-18.0) gm/dl Hct (42-50) % MCV (78-100) fl MCH (26-32) pg MCHC (32-36) g/dl RDW (11.5-14.0) % Plt Count (150-450) K/mm3 MPV (7.5-11.0) fl Gran % (36.0-66.0) % Eos # (Auto) (0-0.5) Absolute Lymphs (auto) (1.0-4.6) Absolute Monos (auto) (0.0-1.3) Lymphocytes % (24.0-44.0) % Monocytes % (0.0-12.0) % Eosinophils % (0.00-5.0) % Basophils % (0.0-0.4) % Absolute Granulocytes (1.4-6.9) Basophils # (0-0.4) Sodium (137-145) mmol/L Potassium (3.5-5.1) mmol/L Chloride (98-107) mmol/L Carbon Dioxide (22-30) mmol/L Anion Gap (5-15) MEQ/L BUN (9-20) mg/dL Creatinine (0.66-1.25) mg/dL Estimated GFR ML/MIN Glucose (74-106) mg/dL POC Glucometer 121 H (74 to 106) mg/dL Hemoglobin A1c (4.5-6.0) % Calcium (8.4-10.2) mg/dL Total Bilirubin (0.2-1.3) mg/dL AST (17-59) U/L ALT (0-50) U/L Alkaline Phosphatase (38-126) U/L Troponin I (0.000-0.034) ng/mL NT-Pro-B Natriuret Pep (0-900) pg/mL Serum Total Protein (6.3-8.2) g/dL Albumin (3.5-5.0) g/dL Influenza Type A Ag (NEGATIVE) Influenza Type B Ag (NEGATIVE) RSV (PCR) (Negative) SARS-CoV-2 (PCR) (NEGATIVE) Slides for Path Review - Radiology Impressions Radiology Exams & Impressions: Radiology Procedures Category Date Time Status CHEST 1 VIEW (PORTABLE) Stat Exams 02/17/21 12:31 Completed - Other Procedures and Tests Respiratory Therapy 02/17/21 13:00 Respiratory Therapy Assessment DAILY 02/17/21 16:02 Oxygen NASAL CANNULA 2 lpm 02/17/21 21:42 BiPap/CPAP ROUTINE Assessment/Plan (1) Atrial fibrillation Current Visit: Yes Status: Acute Code(s): I48.91 - UNSPECIFIED ATRIAL FIBRILLATION (2) Congestive heart failure Current Visit: Yes Status: Acute Code(s): I50.9 - HEART FAILURE, UNSPECIFIED (3) Elevated brain natriuretic peptide (BNP) level Current Visit: Yes Status: Acute Code(s): R79.89 - OTHER SPECIFIED ABNORMAL FINDINGS OF BLOOD CHEMISTRY (4) Pneumonia Current Visit: Yes Status: Acute Code(s): J18.9 - PNEUMONIA, UNSPECIFIED ORGANISM
[2021-02-18] MEDS ORDERED: NON-FORMULARY ITEM (Linaclotide [Linzess] 290 MCG Capsule) PO PRN (08:49)
[2021-02-18] MEDS ORDERED: SILDENAFIL CITRATE 100 MG PO PRN (08:49)
[2021-02-18] MEDS ORDERED: NON-FORMULARY ITEM (Evolocumab [Repatha Syringe] 140 MG/ML Syringe) SQ SCH (09:00)
[2021-02-18] MEDS ORDERED: MEDICATION INTERVENTION PO SCH ×5 (09:15→09:30)
[2021-02-18] MEDS ORDERED: MEDICATION INTERVENTION MC SCH (09:30)
[2021-02-18] MEDS: Protonix 40MG Tablet PO SCH (09:56)
[2021-02-18] MEDS: ELIQUIS 2.5 MG TABLET PO SCH (09:56)
[2021-02-18] MEDS: COREG 12.5 MG PO SCH (09:56)
[2021-02-18] MEDS: ECOTRIN 81 MG PO SCH (09:56)
[2021-02-18] MEDS: Januvia 50 MG PO SCH ×2 (09:57→17:24)
[2021-02-18] MEDS: VIBRAMYCIN 100 MG*** 100 MG in Dextrose 5%/Water IV Soln. 100ML PLUS BAG 100 ML IV SCH (09:57)
[2021-02-18] MEDS ORDERED: hydroDIURIL 25 MG PO SCH (10:00)
[2021-02-18] MEDS ORDERED: NON-FORMULARY ITEM (Potassium Chloride [Potassium Chloride] 8 MEQ Tablet.Er) PO SCH (10:00)
[2021-02-18] MEDS ORDERED: HYDROCHLOROTHIAZIDE PO SCH (10:00)
[2021-02-18] MEDS ORDERED: Micardis 80 MG Tablet PO SCH (10:00)
[2021-02-18] MEDS ORDERED: NON-FORMULARY ITEM (Dapagliflozin Propanediol [Farxiga] 10 MG Tablet) PO SCH (10:00)
[2021-02-18] MEDS ORDERED: LASIX 20 MG PO SCH (10:00)
[2021-02-18] MEDS ORDERED: [UNRECOGNIZED DRUG - OTHER] PO SCH (10:00)
[2021-02-18] MEDS ORDERED: NON-FORMULARY ITEM (Leflunomide [Leflunomide] 20 MG Tablet) PO SCH (10:00)
[2021-02-18] MEDS ORDERED: DELTASONE 20 MG PO SCH (10:00)
[2021-02-18] MEDS ORDERED: TELMISARTAN PO SCH (10:00)
[2021-02-18] MEDS ORDERED: Klor Con 10 MEQ PO SCH (10:00)
[2021-02-18] MEDS ORDERED: FIBER PO SCH (22:00)
--- NOTE | 2021-02-21 21:07 | PCM.DS ---
Discharge Summary Date of Admission: 02/17/21 16:00 Admitting Physician: GEETA MENEZES Primary Care Provider: GEETA MENEZES Allergies Allergies cephalexin [From Keflex] Allergy (Severe, Verified 02/17/21 18:15) hives breathing insulin glargine [From Lantus U-100 Insulin] Allergy (Severe, Verified 02/17/21 18:15) respiratory [id number] Reductase Inhibitor Allergy (Verified 02/17/21 18:15) methyltrexate Allergy (Uncoded 02/17/21 13:02) Hospital Summary - Hospital Course Hospital Course: Chief Complaint Diagnosis chf, pneumonia Allergies Allergy/AdvReac Type Severity Reaction Status Date / Time cephalexin [From Keflex] Allergy Severe hives Verified 02/17/21 18:15 breathing insulin glargine Allergy Severe respiratory Verified 02/17/21 18:15 [From Lantus U-100 Insulin] [id number] Reductase Allergy Verified 02/17/21 18:15 Inhibitor methyltrexate Allergy Uncoded 02/17/21 13:02 Home Medications Medication Instructions Recorded Confirmed Last Taken Type Apixaban [Eliquis] 5 mg PO DAILY 02/17/21 02/17/21 Unknown History Aspirin EC 81 mg [Ecotrin 81 81 mg PO DAILY 02/17/21 02/17/21 02/17/21 History mg] Carvedilol [Coreg] 25 mg PO BID 02/17/21 02/17/21 02/17/21 History Dapagliflozin Propanediol [Farxiga] 10 mg PO DAILY 02/17/21 02/17/21 Unknown History Evolocumab [Repatha Syringe] 140 mg SQ UD 02/17/21 02/17/21 Unknown History Famotidine [Pepcid] 40 mg PO HS 02/17/21 02/17/21 02/16/21 History Famotidine [Pepcid] 40 mg PO HS 02/17/21 02/17/21 02/16/21 History Fiber [Fiber Diet] 6 each PO HS 02/17/21 02/17/21 02/16/21 History Furosemide [Lasix] 20 mg PO DAILY 02/17/21 02/17/21 02/17/21 History Leflunomide 20 mg PO DAILY 02/17/21 02/17/21 02/17/21 History Linaclotide [Linzess] 290 mcg PO DAILY PRN PRN 02/17/21 02/17/21 Unknown History Omeprazole 40 mg PO BID 02/17/21 02/17/21 02/17/21 History Potassium Chloride 8 meq PO DAILY 02/17/21 02/17/21 02/17/21 History Sildenafil Citrate [Viagra] 100 mg PO DAILY PRN 02/17/21 02/17/21 Unknown H istory Sitagliptin Phos/Metformin HCl 1 each PO BID 02/17/21 02/17/21 02/17/21 History [Janumet 50-1,000 mg Tablet] Telmisartan/Hydrochlorothiazid 1 each PO DAILY 02/17/21 02/17/21 02/17/21 History [Micardis Hct 80-25 mg Tablet] Tramadol HCl 50 mg [Ultram 50 50 mg PO Q4H PRN PRN 02/17/21 02/17/21 Unknown History mg] predniSONE [Prednisone] 20 mg PO DAILY 02/17/21 02/17/21 02/17/21 History Current Medications Discontinued Medications Generic Name Dose Route Start Last Admin Trade Name Freq PRN Reason Stop Dose Admin Albuterol/Ipratropium 3 ml 02/17/21 12:31 02/17/21 12:44 Ipratropium/Albuterol Sulfate 3 Ml Ampul.Neb 02/17/21 12:32 3 ml STAT ONE Administration Albuterol/Ipratropium Confirm 02/17/21 12:40 Ipratropium/Albuterol Sulfate 3 Ml Ampul.Neb Administered 02/17/21 12:41 Dose 3 ml IH .STK-MED ONE Albuterol/Ipratropium 3 ml 02/17/21 19:00 02/18/21 18:09 Ipratropium/Albuterol Sulfate 3 Ml Ampul.Neb 03/19/21 18:59 3 ml Q4HRT DAVID Administration Apixaban 5 mg 02/17/21 22:00 02/18/21 09:56 Apixaban 2.5 Mg Tablet PO 03/19/21 21:59 5 mg DAILY DAVID Administration Aspirin 324 mg 02/17/21 13:58 02/17/21 14:27 Aspirin 81 Mg Tab.Chew PO 02/17/21 13:59 324 mg STAT ONE Administration Aspirin Confirm 02/17/21 14:27 Aspirin 81 Mg Tab.Chew Administered 02/17/21 14:28 Dose 324 mg .ROUTE .STK-MED ONE Aspirin 81 mg 02/17/21 22:00 02/18/21 09:56 Aspirin 81 Mg Tablet.Ec PO 03/19/21 21:59 81 mg DAILY DAVID Administration Carvedilol 25 mg 02/17/21 22:00 02/18/21 09:56 Carvedilol 12.5 Mg Tablet PO 03/19/21 21:59 25 mg BID DAVID Administration Methylprednisolone Sodium 0 mg 02/17/21 12:31 02/17/21 13:08 Succinate 125 mg/ Sterile IV 02/17/21 12:32 125 mg Water 2 ml STAT ONE Administration Methylprednisolone Sodium 0 mg 02/17/21 18:00 02/18/21 17:24 Succinate 60 mg/ Sterile Water IV 03/19/21 17:59 60 mg 2 ml Q6HT DAVID Administration Dextrose Confirm 02/18/21 04:15 Dextrose 50%-Water 50 Ml Abboject Administered 02/18/21 04:16 Dose 50 ml IV .STK-MED ONE Doxycycline Hyclate Confirm 02/17/21 13:12 Doxycycline Hyclate 100 Mg/Vial Injection Administered 02/17/21 13:13 Dose 100 mg IV .STK-MED ONE Doxycycline Hyclate Confirm 02/17/21 22:12 Doxycycline Hyclate 100 Mg/Vial Injection Administered 02/17/21 22:13 Dose 100 mg IV .STK-MED ONE Famotidine 40 mg 02/17/21 22:00 02/17/21 21:21 Famotidine 20 Mg Tablet PO 03/19/21 21:59 40 mg HS DAVID Administration Furosemide 40 mg 02/17/21 13:58 02/17/21 14:28 Furosemide 40 Mg/4 Ml Vial IV 02/17/21 13:59 40 mg STAT ONE Administration Furosemide Confirm 02/17/21 14:27 Furosemide 40 Mg/4 Ml Vial Administered 02/17/21 14:28 Dose 40 mg .ROUTE .STK-MED ONE Furosemide 20 mg 02/18/21 10:00 02/18/21 09:56 Furosemide 20 Mg Tablet PO 03/20/21 09:59 20 mg DAILY DAVID Administration Hydrochlorothiazide 25 mg 02/18/21 10:00 02/18/21 09:57 Hydrochlorothiazide 25 Mg Tablet PO 03/20/21 09:59 25 mg DAILY DAVID Administration Piperacillin Sod/Tazobactam 100 mls @ 200 mls/hr 02/17/21 12:33 02/17/21 13:09 Sod 3.375 gm/ Sodium Chloride IV 02/17/21 13:02 Not Given STAT ONE Vancomycin HCl 1 gm in 200 mls @ 125 mls/hr 02/17/21 12:34 02/17/21 14:50 Vancomycin 1 Gram/200 Ml Bag IV 02/17/21 14:09 Infused STAT ONE Infusion Sodium Chloride Confirm 02/17/21 12:55 Sodium Chloride 100ml Mini-Bag Plus Administered 02/17/21 12:56 Dose 100 mls @ ud IV .STK-MED ONE Vancomycin HCl Confirm 02/17/21 12:55 Vancomycin 1 Gram/200 Ml Bag Administered 02/17/21 12:56 Dose 1 gm in 200 mls @ ud IV .STK-MED ONE Doxycycline Hyclate 100 mg/ 100 mls @ 100 mls/hr 02/17/21 22:00 02/17/21 13:12 Dextrose IV 03/19/21 21:59 100 mls/hr Q12HT DAVID Administration Dextrose Confirm 02/17/21 13:12 D5w 100ml Mini Bag 100 Ml Administered 02/17/21 13:13 Dose 100 mls @ ud IV .STK-MED ONE Potassium Chloride 20 meq in 100 mls @ 50 mls/hr 02/17/21 14:00 02/17/21 17:59 Potassium Chloride 20 Meq In Water 100ml IV 02/17/21 17:59 50 mls/hr Q2H DAVID Administration Potassium Chloride Confirm 02/17/21 14:27 Potassium Chloride 20 Meq In Water 100ml Administered 02/17/21 14:28 Dose 100 mls @ ud IV .STK-MED ONE Potassium Chloride Confirm 02/17/21 17:57 Potassium Chloride 20 Meq In Water 100ml Administered 02/17/21 17:58 Dose 100 mls @ ud IV .STK-MED ONE Doxycycline Hyclate 100 mg/ 100 mls @ 100 mls/hr 02/17/21 22:00 02/18/21 09:57 Dextrose IV 03/19/21 21:59 100 mls/hr Q12HT DAVID Administration Dextrose Confirm 02/17/21 22:12 D5w 100ml Mini Bag 100 Ml Administered 02/17/21 22:13 Dose 100 mls @ ud IV .STK-MED ONE Metformin HCl 1,000 mg 02/18/21 08:00 02/18/21 17:24 Metformin Hcl 500 Mg Tablet PO 03/20/21 07:59 1,000 mg BIDWM DAVID Administration Methylprednisolone Sodium Succinate Confirm 02/17/21 12:55 Methylprednis Sod Succ 125 Mg/2 Ml Vial Administered 02/17/21 12:56 Dose 125 mg .ROUTE .STK-MED ONE Miscellaneous Information 1 each 02/18/21 09:15 Medication Intervention 1 Each Each PO 03/20/21 09:14 .RN TO CHECK ON DAVID Miscellaneous Information 1 each 02/18/21 09:30 Medication Intervention 1 Each Each MC 03/20/21 09:29 .RN TO CHECK ON DAVID Miscellaneous Information 1 each 02/18/21 09:30 Medication Intervention 1 Each Each PO 03/20/21 09:29 .RN TO CHECK ON DAVID Miscellaneous Information 1 each 02/18/21 09:30 Medication Intervention 1 Each Each PO 03/20/21 09:29 .RN TO CHECK ON DAVID Miscellaneous Information 1 each 02/18/21 09:30 Medication Intervention 1 Each Each PO 03/20/21 09:29 .RN TO CHECK ON DAVID Miscellaneous Information 1 each 02/18/21 09:30 Medication Intervention 1 Each Each PO 03/20/21 09:29 .RN TO CHECK ON DAVID Nitroglycerin 1 gm 02/17/21 14:03 02/17/21 14:28 Nitroglycerin 1 Gm Packet TOP 02/17/21 14:04 1 gm STAT ONE Administration Nitroglycerin Confirm 02/17/21 14:27 Nitroglycerin 1 Gm Packet Administered 02/17/21 14:28 Dose 1 gm .ROUTE .STK-MED ONE Pantoprazole Sodium 80 mg 02/17/21 22:00 02/18/21 09:56 Protonix (Pantoprazole) 40 Mg Tablet PO 03/19/21 21:59 80 mg BID DAVID Administration Piperacillin Sod/Tazobactam Sod Confirm 02/17/21 12:55 Piperacillin/Tazobactam Sodium 3.375 Gm Vial Administered 02/17/21 12:56 Dose 3.375 gm IV .STK-MED ONE Potassium Chloride 10 meq 02/18/21 10:00 02/18/21 09:56 Potassium Chloride 10 Meq Tablet PO 03/20/21 09:59 10 meq DAILY DAVID Administration Prednisone 20 mg 02/18/21 10:00 Prednisone 20 Mg Tablet PO 03/20/21 09:59 DAILY DAVID Sitagliptin Phosphate 50 mg 02/17/21 22:00 02/17/21 21:23 Sitagliptin Phosphate 50 Mg Tablet PO 03/19/21 21:59 Not Given BID DAVID Sitagliptin Phosphate 50 mg 02/18/21 09:00 02/18/21 17:24 Sitagliptin Phosphate 50 Mg Tablet PO 03/19/21 21:59 50 mg BIDWM DAVID Administration Sterile Water Confirm 02/17/21 12:55 Water For Injection,Sterile 10 Ml Vial Administered 02/17/21 12:56 Dose 10 ml IJ .STK-MED ONE Telmisartan 80 mg 02/18/21 10:00 02/18/21 09:57 Telmisartan 80 Mg Tab PO 03/20/21 09:59 80 mg DAILY DAVID Administration Tramadol HCl 50 mg 02/17/21 18:30 Tramadol Hcl 50 Mg Tablet PO 03/19/21 18:29 Q4H PRN PRN PAIN Intake & Output (Last 24 hours) 02/19/21 02/20/21 02/21/21 02/22/21 11:59 11:59 11:59 11:59 Intake Total 480 Balance 480 - Vitals & Intake/Output Vital Signs: Vital Signs Temperature 97.8 F 02/18/21 16:00 Pulse Rate 98 H 02/18/21 18:12 Respiratory Rate 18 02/18/21 18:12 Blood Pressure 130/87 02/18/21 16:00 O2 Sat by Pulse Oximetry 94 L 02/18/21 18:12 Intake & Output: Intake & Output 02/19/21 02/20/21 02/21/21 02/22/21 11:59 11:59 11:59 11:59 Intake Total 480 Balance 480 - Lab Result Diagrams: 02/18/21 01:53 02/18/21 01:53 Micro Results-Entire Visit: Microbiology 02/17/21 12:50 Blood Culture - Preliminary Blood NO GROWTH TO DATE 02/17/21 12:45 Blood Culture - Preliminary Blood NO GROWTH TO DATE - Procedures and Test Procedures and Tests throughout Hospitalization: Therapy Orders & Screens 02/17/21 13:00 Respiratory Therapy Assessment DAILY Comment: 02/17/21 16:02 Oxygen NASAL CANNULA 2 lpm Comment: Diagnosis: CHF 02/17/21 21:42 BiPap/CPAP ROUTINE Comment: Diagnosis: chf, pneumonia Discharge Exam General Appearance: no apparent distress, alert Neurologic Exam: alert, oriented x 3, cooperative, normal mood/affect, nml cerebellar function, sensation nml, No motor deficits Eye Exam: PERRL, EOMI, eyes nml inspection Ears, Nose, Throat Exam: normal ENT inspection, pharynx normal, moist mucous membranes Neck Exam: normal inspection, non-tender, supple, full range of motion Respiratory Exam: normal breath sounds, lungs clear, No respiratory distress Cardiovascular Exam: regular rate/rhythm, normal heart sounds Gastrointestinal/Abdomen Exam: soft, No tenderness, No mass Male Genitalia Exam: deferred Rectal Exam: deferred Back Exam: normal inspection, normal range of motion, No CVA tenderness, No vertebral tenderness Extremity Exam: normal inspection, normal range of motion Skin Exam: normal color, warm, dry Final Diagnosis/Problem List - Final Discharge Diagnosis/Problem (1) Congestive heart failure Status: Acute Priority: High Code(s): I50.9 - HEART FAILURE, UNSPECIFIED (2) Atrial fibrillation Status: Acute Code(s): I48.91 - UNSPECIFIED ATRIAL FIBRILLATION (3) Elevated brain natriuretic peptide (BNP) level Status: Acute Code(s): R79.89 - OTHER SPECIFIED ABNORMAL FINDINGS OF BLOOD CHEMISTRY (4) Pneumonia Status: Acute Priority: High Code(s): J18.9 - PNEUMONIA, UNSPECIFIED ORGANISM - Discharge Discharge Date: 02/18/21 Disposition: DC TO [facility] Condition: Stable Prescriptions: No Action Tramadol HCl 50 mg [Ultram 50 mg] 50 mg PO Q4H PRN PRN PRN Reason: Pain Sitagliptin Phos/Metformin HCl [Janumet 50-1,000 mg Tablet] 1 each PO BID Leflunomide 20 mg PO DAILY Furosemide [Lasix] 20 mg PO DAILY Carvedilol [Coreg] 25 mg PO BID Apixaban [Eliquis] 5 mg PO DAILY Evolocumab [Repatha Syringe] 140 mg SQ UD Telmisartan/Hydrochlorothiazid [Micardis Hct 80-25 mg Tablet] 1 each PO DAILY Omeprazole 40 mg PO BID predniSONE [Prednisone] 20 mg PO DAILY Sildenafil Citrate [Viagra] 100 mg PO DAILY PRN PRN Reason: ED Dapagliflozin Propanediol [Farxiga] 10 mg PO DAILY Famotidine [Pepcid] 40 mg PO HS Potassium Chloride 8 meq PO DAILY Fiber [Fiber Diet] 6 each PO HS Linaclotide [Linzess] 290 mcg PO DAILY PRN PRN PRN Reason: Constipation Aspirin EC 81 mg [Ecotrin 81 mg] 81 mg PO DAILY Famotidine [Pepcid] 40 mg PO HS Follow up with: GEETA MENEZES MD [Primary Care Provider] - Forms: Ambulance Transport Record, Transfer Record Inter-Agency
[2021-02-22 16:52] VITALS: BP 130/87; PULSE 98; O2SAT 94
== END 2021-02-18 18:40 | disposition short-term general hospital (02) ==
LOC: ED 12:17 → MED SURG 16:00
PROVIDERS: ADMIT General Practice; ATTEND General Practice
DX: I11.0 Hypertensive heart disease with heart failure (principal); J18.9 Pneumonia, unspecified organism; I48.91 Unspecified atrial fibrillation; E87.6 Hypokalemia; E87.1 Hypo-osmolality and hyponatremia; D64.9 Anemia, unspecified; R09.02 Hypoxemia; E11.9 Type 2 diabetes mellitus without complications; R77.8 Other specified abnormalities of plasma proteins; E78.00 Pure hypercholesterolemia, unspecified; Z79.899 Other long term (current) drug therapy; Z79.01 Long term (current) use of anticoagulants; Z20.828 Contact with and (suspected) exposure to other viral communicable diseases; R79.89 Other specified abnormal findings of blood chemistry
CPT/HCPCS: 0241U; 36000; 36415; 71045; 80048; 80053; 82947; 83036; 83880; 84484; 85025; 85027; 87040; 93005; 93041; 93268; 94002; 94003; 94640; 94760; 96365; 96374; 96375; 99285; G0378; J1940; J2930; J3480; A9270-GY; J3370